=== PATIENT | female | born 1955 | race Caucasian/White ===

== ENCOUNTER 2024-06-24 15:28 | Outpatient (CLI) | payer MEDICARE, OTHER, SELFPAY ==
--- NOTE | 2024-06-24 07:15 | KNEE_PTH ---
PATIENT: NIKHIL VITALE LOC: [facility] U#:[id number] AGE/SX: 68/F ROOM: RE06/24/[address]: Dr. Derrell Fritz MD : 1955 BED: DIS: 06/24/2024 SPEC #: [id number] RECD: 06/27/24 07:16 STATUS: REGINALD STEWART #: [id number] TORIE: 06/24/24 07:[address]: Derrell Fritz DEPT: SURGICAL PATHOLOGY RECD BY: Onofre Jaimes ENTERED: 06/27/24 07:17 SP TYPE: TOTAL KNEE OTHR DR: Dr. Royal Boston MD [facility] Tissues: A - Knee, NOS Procedures: Decalcification bone/plaque Surgery Specimen Level III HEADER OPERATION: Left total knee replacement PRE-OP DIAGNOSIS: Unilateral post traumatic osteoarthritis, left knee TISSUE SUBMITTED: A- Left knee bone and tissue MICROSCOPIC DIAGNOSIS A. Left knee, osteoarthritis, arthroplasty: * Cartilage and bone with degenerative changes * Cartilage and soft tissue with areas of polarizable foreign material MICROSCOPIC DESCRIPTION Slides are reviewed. GROSS DESCRIPTION A. Received in formalin in a container labeled with the patient's name, date of , and left knee bone and tissue are multiple [place], firm, and irregular fragments of bone and soft tissue measuring 12.0 x 10.0 x 2.5 cm in aggregate. The specimen consists of, but is not limited to, medial/lateral condyle and tibial plateau. The resection margins are smooth, and firm and the cortical surfaces are pitted and granular with smooth possible eburnation. There is a small amount of white, somewhat chalky material on the bone and soft tissue. Sectioning of the bone reveals firm, unremarkable surfaces. Sectioning of the soft tissue reveals higginbotham-yellow surfaces. Multimedia Authoring Specialist sections:A1. Soft tissue with sampled chalky materialA2. Bone following decalcification [facility] 06-27-2024 CPT:65295,97398
== END 2024-06-24 23:59 | disposition home or self-care (01) ==
LOC: LABSPEC 15:33
PROVIDERS: PCP Family Medicine; Referring Provider Orthopaedic Surgery; Visit Provider Orthopaedic Surgery
DX: M17.32 Unilateral post-traumatic osteoarthritis, left knee (principal)
CPT/HCPCS: 88304; 88305; 88311